=== PATIENT | female | born 1965 | race Caucasian/White ===

== ENCOUNTER 2017-04-29 17:30 | Observation (INO) ==
[2017-04-29] MEDS ORDERED: Aspirin 81 MG TAB.CHEW PO ONE (17:31)
[2017-04-29] MEDS ORDERED: diazePAM 10 MG TABLET PO ONE ×2 (17:36→23:18)
--- NOTE | 2017-04-29 17:47 | Emergency Department Note ---
Disposition Clinical Impression: Anxiety, Non-cardiac chest pain Disposition: Admitted As Inpatient Condition: Good Instructions: Chest Pain (ED), Anxiety (ED) Referrals: NONE,PCP [Primary Care Provider] - Forms: ED Satisfaction Letter Time of Disposition: 17:58 Chest Pain HPI - General Chief Complaint: ED Chest Pain Stated Complaint: Chest Pain Time Seen by Provider: 04/29/17 17:30 Source: patient, EMS Mode of arrival: ambulatory Limitations: no limitations Vital Signs Reviewed: Yes Nursing Notes Reviewed: Yes - History of Present Illness HPI Narrative: Patient is a 52-year-old female with past medical history of anxiety, depression , PTSD. She currently takes Wellbutrin 200 mg twice daily, diazepam 10 mg 3 times a day, fluoxetine 60 mg once daily, Lyrica 75 mg twice a day, melatonin at bedtime. She says that she does have a history of anxiety and panic attacks in the past where she usually just has not had severe. Today, she started having chest pain this morning around 6 AM. It was a sharp pain in the center of her chest, radiated to her back, was associated with palpitations, sweating, feeling of nervousness. This lasted about 30 minutes. It intermittently occurred throughout the day. Prior to arrival, patient had return of symptoms and she stated that it was significantly worse than this morning. She denies any history of CAD, stents, [place]. Denies any high blood pressure, diabetes, high cholesterol. She was very nervous on exam. Hyperventilating. Denies any other nausea, vomiting, abdominal pain, fevers, cough. Severity scale (1-10): 10 - Related Data Home Medications Medication Instructions Recorded Confirmed Diazepam 06/14/16 Benadryl 09/25/16 BuPROPion 09/25/16 Topamax 09/25/16 Tylenol 09/25/16 Previous Rx's Medication Instructions Recorded Butalb/Acetaminophen/Caffeine 1 each PO Q6H PRN #6 capsule 09/25/16 [Fioricet 50-300-40 mg Capsule] methylPREDNISolone [Medrol] 4 mg PO TAPER #21 tablet 09/25/16 Allergies Allergy/AdvReac Type Severity Reaction Status Date / Time Erythromycin Base Allergy Anaphylaxis Verified 04/29/17 17:31 gabapentin [From Neurontin] Allergy Anaphylaxis Verified 04/29/17 17:31 Macrolide Antibiotics Allergy Anaphylaxis Verified 09/30/17 17:31 Penicillins Allergy Anaphylaxis Verified 04/29/17 17:31 Sulfa (Sulfonamide Allergy Anaphylaxis Verified 04/29/17 17:31 Antibiotics) Tetracycline Allergy Anaphylaxis Verified 04/29/17 17:31 All systems ED: reviewed and negative except as stated. Constitutional: Denies: fever Cardiovascular: Reports: chest pain, palpitations Respiratory: Reports: dyspnea Neurological: Denies: weakness, numbness Psychiatric: Reports: anxiety Chest Pain PMH - Past Medical History Medical history: Reports: asthma Surgical history: Reports: appendectomy, hysterectomy, other Psychiatric history: Reports: anxiety, depression - Social History Smoking Status: Former smoker Alcohol use: Reports: none Drug use: Reports: none Physical Exam - General Limitations: no limitations General appearance: alert, anxious - Head Head exam: atraumatic, normocephalic, normal inspection - Eye Eye exam: Present: normal appearance, PERRL, EOMI - ENT ENT exam: normal exam, normal oropharynx, mucous membranes moist - Neck Neck exam: Present: normal inspection, full ROM, trachea midline - Chest Chest inspection: Present: normal inspection, symmetric chest wall rise. Absent : tenderness - Respiratory Respiratory exam: Present: normal lung sounds bilaterally - Cardiovascular Cardiovascular exam: Present: regular rate, normal rhythm, normal heart sounds - Abdominal Exam Abdominal exam: Present: soft, Non-Tender. Absent: tenderness, distention, guarding, rebound, rigidity - Extremities Exam Extremities exam: Present: normal inspection, full ROM. Absent: tenderness, pedal edema - Neurological Exam Neurological exam: Present: alert, oriented X3. Absent: motor sensory deficit - Psychiatric Psychiatric exam: Present: anxious (very anxious on exam, won't maintain eye contact with me, hyperventilating ). Absent: homicidal ideation, suicidal ideation - Skin Skin exam: Present: warm, dry, intact, normal color Course Course Narrative: Patient was tachycardic. The rest of the vitals within normal limits. Patient very anxious on exam, hyperventilating. EKG shows sinus tachycardia with no acute ST changes. She has as previous EKGs that shows sinus tachycardia as well. Physical exam was fairly benign aside from the previously mentioned anxiety. No reproducible chest pain, lungs clear, abdomen soft and benign. Patient says that she is due for diazepam dosing currently. We will give her 10 mg of diazepam. Will also give aspirin 325mg. Her heart score, assuming the troponin will be negative, is currently 1 only due to age. She has no other risk factors for cardiac disease. We will obtain troponin, basic blood work, chest x-ray. 18:28 Leukocytosis present. Trop 0.04, no previous elevations above cutoff. CXR negative. WHile heart score is low, with patient having active chest pain, mild elevation in trop, will admit for chest pain rule out. Vital Signs Pulse Rate 140 04/29/17 17:31 Respiratory Rate 30 04/29/17 17:31 Blood Pressure 148/97 04/29/17 17:31 O2 Sat by Pulse Oximetry 98 04/29/17 17:31 Temperature 99.0 F 04/29/17 17:32 Pulse Rate 153 04/29/17 18:35 Respiratory Rate 28 04/29/17 18:35 Blood Pressure 106/69 04/29/17 18:35 O2 Sat by Pulse Oximetry 95 04/29/17 18:35 Oxygen Delivery Oxygen Delivery Nasal Cannula Chest Pain - MDM Narrative Medical decision making narrative: Patient was tachycardic. The rest of the vitals within normal limits. Patient very anxious on exam, hyperventilating. EKG shows sinus tachycardia with no acute ST changes. She has as previous EKGs that shows sinus tachycardia as well. Physical exam was fairly benign aside from the previously mentioned anxiety. No reproducible chest pain, lungs clear, abdomen soft and benign. Patient says that she is due for diazepam dosing currently. We will give her 10 mg of diazepam. Will also give aspirin 325mg. Her heart score, assuming the troponin will be negative, is currently 1 only due to age. She has no other risk factors for cardiac disease. We will obtain troponin, basic blood work, chest x-ray. Leukocytosis present. Trop 0.04, no previous elevations above cutoff. CXR negative. WHile heart score is low, with patient having active chest pain, mild elevation in trop, will admit for chest pain rule out. - Medical Records Medical records reviewed: Yes I reviewed the patient's medical records. - Lab Data Lab results reviewed: Yes I reviewed the patient's lab results. Result diagrams: 04/29/17 17:59 04/29/17 17:59 Lab Results 04/29/17 04/29/17 04/29/17 Range/Units 17:59 17:59 17:59 WBC 17.0 H (4.3-11.1) K/mcL RBC 5.50 H (3.82-4.97) M/mcL Hgb 15.5 H (11.5-15.4) g/dL Hct 45.5 H (35.3-44.9) % MCV 82.7 L (83.0-100.0) fL MCH 28.2 (28.0-33.3) pg MCHC 34.1 (31.6-35.5) g/dL RDW 14.0 (11.5-14.5) % Plt Count 359 (140-400) K/mcL MPV 9.5 (9.4-12.4) fL Immature Gran % 0.5 (0-4) % Seg Neutrophils % 65.7 % Lymphocytes % 27.5 % Monocytes % 4.3 % Eosinophils % 1.6 % Basophils % 0.4 % Neutrophils # 11.2 H (1.6-8.9) K/mcL Lymphocytes # 4.7 H (0.6-4.6) K/mcL Monocytes # 0.7 (0.0-1.3) K/mcL Eosinophils # 0.3 (0.0-0.6) K/mcL Basophils # 0.1 (0.0-0.2) K/mcL PT 10.6 (9.4-12.1) Seconds INR 1.0 Sodium 138 (136-145) mEq/L Potassium 3.8 (3.5-4.5) mEq/L Chloride 104 (98-109) mEq/L Carbon Dioxide 21 (19-29) mEq/L BUN 13 (7-20) mg/dL Creatinine 0.75 (0.57-1.11) mg/dL Est GFR ( Amer) > 60 (> 60) Est GFR (Non-Af Amer) > 60 (> 60) BUN/Creatinine Ratio 17 (6-26) Glucose 121 H (70-99) mg/dL Calculated Osmolality 287 (280-300) Calcium 10.5 (8.6-10.8) mg/dL Troponin I (0-0.03) ng/mL TSH 1.981 (0.350-4.840) mcIU/mL 04/29/17 Range/Units 17:59 WBC (4.3-11.1) K/mcL RBC (3.82-4.97) M/mcL Hgb (11.5-15.4) g/dL Hct (35.3-44.9) % MCV (83.0-100.0) fL MCH (28.0-33.3) pg MCHC (31.6-35.5) g/dL RDW (11.5-14.5) % Plt Count (140-400) K/mcL MPV (9.4-12.4) fL Immature Gran % (0-4) % Seg Neutrophils % % Lymphocytes % % Monocytes % % Eosinophils % % Basophils % % Neutrophils # (1.6-8.9) K/mcL Lymphocytes # (0.6-4.6) K/mcL Monocytes # (0.0-1.3) K/mcL Eosinophils # (0.0-0.6) K/mcL Basophils # (0.0-0.2) K/mcL PT (9.4-12.1) Seconds INR Sodium (136-145) mEq/L Potassium (3.5-4.5) mEq/L Chloride (98-109) mEq/L Carbon Dioxide (19-29) mEq/L BUN (7-20) mg/dL Creatinine (0.57-1.11) mg/dL Est GFR ( Amer) (> 60) Est GFR (Non-Af Amer) (> 60) BUN/Creatinine Ratio (6-26) Glucose (70-99) mg/dL Calculated Osmolality (280-300) Calcium (8.6-10.8) mg/dL Troponin I 0.04 H* (0-0.03) ng/mL TSH (0.350-4.840) mcIU/mL - Radiology Data Radiology results reviewed: Yes I reviewed the patient's radiology results. - EKG Data EKG attestation: Yes I reviewed and interpreted this EKG. EKG results narrative: 04/29/2017 at 17:33. Sinus tachycardia. Rate 138. UT interval 147. QRS 78. QTC 357. No acute ST elevation or depression. Unchanged from previous EKG. Patient also had sinus tachycardia on 01/30/2017 with a rate of 135. Heart Score - Score History: Slightly Suspicious EKG: Normal Age: 45-65 Risk Factors: No risk factors known Troponin: Less than normal limit HEART Score Total: 1 S.B.A.R. - [place] Situation: Demographics, MOA Background: Presenting Complaint, Relevant PMH, Meds, & Allergies Assessment: Vital Signs, Course and respsone to treatment, Exam Concerns, Patient/Family Expectation, Pertinant Lab Results Recommendation: Barrier(s) to disposition, Recommendation based on pending studies, treatments, or consults [place] Report Given to: Bret Last Repor Time: 18:42
--- NOTE | 2017-04-29 17:54 | Emergency Department Note ---
START Narrative - START START: I examined this patient and my medical decision-making was reviewed with the emergency medicine resident. I agree with the documented findings, disposition and treatment plan as described except to the extent set forth below. Patient seen with emergency medicine resident Dr. JIMBO LOCKHART, Please see a copy of his note for details of the H&P, ED evaluation, management and disposition. I have independently evaluated the patient and confirmed appropriate portions of the history and physical exam. Briefly: A 52-year-old female nonsmoker no cardiac risk factors with the [place] 1 history long-standing anxiety takes 30 mg of Valium daily presents with chest discomfort since 9:00 this morning he reached to your physical examination is benign EKG shows sinus tachycardia at about 140 ischemic changes. Prior EKG dated January 2017 her heart rate was 135 at the time. Patient says she normally takes her 10 mg of Valium now we gave to her orally, chest x-ray troponin screening labs pending. Anticipated disposition is discharge home with outpatient follow-up.
[2017-04-29 18:06] LABS: Basophils # 0.1 K/mcL (0.0-0.2); Basophils % 0.4 %; Eosinophils # 0.3 K/mcL (0.0-0.6); Eosinophils % 1.6 %; Hematocrit 45.5 % (35.3-44.9); Hemoglobin 15.5 g/dL (11.5-15.4); Immature Granulocytes % 0.5 % (0-4); Lymphocytes # 4.7 K/mcL (0.6-4.6); Lymphocytes % 27.5 %; Mean Corpuscular HGB Conc 34.1 g/dL (31.6-35.5); Mean Corpuscular Hemoglobin 28.2 pg (28.0-33.3); Mean Corpuscular Volume 82.7 fL (83.0-100.0); Mean Platelet Volume 9.5 fL (9.4-12.4); Monocytes # 0.7 K/mcL (0.0-1.3); Monocytes % 4.3 %; Neutrophils # 11.2 K/mcL (1.6-8.9); Platelet Count 359 K/mcL (140-400); Segmented Neutrophils % 65.7 %
[2017-04-29 18:10] LABS: Prothrombin Time 10.6 Seconds (9.4-12.1)
[2017-04-29 18:17] LABS: BUN/Creatinine Ratio 17 (6-26); Blood Urea Nitrogen 13 mg/dL (7-20); Calcium 10.5 mg/dL (8.6-10.8); Carbon Dioxide 21 mEq/L (19-29); Chloride 104 mEq/L (98-109); Glucose 121 mg/dL (70-99); Osmolality,Calculated 287 (280-300); Potassium 3.8 mEq/L (3.5-4.5); Sodium 138 mEq/L (136-145); eGFR For African Americans > 60 (> 60); eGFR For Non-African Americans > 60 (> 60)
[2017-04-29] MEDS ORDERED: Nitroglycerin 0.4 MG TAB.SUBL SL PRN (18:29)
[2017-04-29] MEDS ORDERED: Nitroglycerin 0.4 MG TAB.SUBL SL ONE (18:30)
[2017-04-29 18:39] LABS: Thyroid Stimulating Hormone 1.981 mcIU/mL (0.350-4.840)
[2017-04-29] MEDS ORDERED: *HR* FentaNYL (PF) 100 MCG/2 ML VIAL IVP ONE (19:26)
[2017-04-29] MEDS ORDERED: Naloxone 0.4 MG/ML INJ IVP PRN (19:40)
[2017-04-29] MEDS ORDERED: Ondansetron 4 MG/2 ML VIAL IVP PRN (19:43)
[2017-04-29 19:50] LABS: Magnesium 1.7 mg/dL (1.6-2.6)
[2017-04-29] MEDS ORDERED: *HR* Heparin 5,000 UNIT/ML VIAL SQ SCH (20:00)
[2017-04-29] MEDS: *HR* Morphine 2 MG/ML SYRINGE IVP PRN (20:59)
[2017-04-29] MEDS ORDERED: *HR* Heparin 5,000 UNIT/ML VIAL IVP ONE (22:24)
[2017-04-29] MEDS ORDERED: *HR* Heparin 5,000 UNIT/ML VIAL IVP PRN ×2 (22:24)
[2017-04-29] MEDS ORDERED: (Rizatriptan Benzoate [Maxalt] 5 MG) PO PRN (22:28)
[2017-04-29] MEDS ORDERED: Heparin 25,000 UNIT/500 ML D5W 25,000 UNIT/500 ML MLS IVC SCH (22:30)
--- NOTE | 2017-04-29 22:32 | Internal Med History&Physical ---
Date of Encounter: 04/30/17 Time of Encounter: 22:15 Assessment and Plan (1) Chest pain Current visit: Yes Status: Acute Atypical chest pain - rule out ACS, possible non-STEMI Continue Aspirin, Crestor, Metoprolol, IV Heparin as per protocol Nitroglycerin as needed for chest pain, IV Morphine as needed Troponin - 0.08, cycle troponin BN peptide < 10 EKG - sinus tachycardia with no acute ST-T changes Chest x-ray - no acute abnormality Cardiology consult for elevated troponin and persistent chest pain Cardiac telemetry, labs in a.m., monitor closely Qualifiers: Chest pain type: unspecified Qualified Code(s): R07.9 - Chest pain, unspecified (2) Anxiety Current visit: Yes Status: Chronic Anxiety with depression and PTSD with history of panic attacks - probably contributing to chest pain Continue home dose of Valium, Cymbalta, Wellbutrin (3) Leukocytosis Current visit: Yes Status: Acute Leukocytosis - unclear etiology, no obvious source of sepsis Empiric IV Levaquin, cultures pending Qualifiers: Leukocytosis type: unspecified Qualified Code(s): D72.829 - Elevated white blood cell count, unspecified (4) Hyperlipemia Current visit: No Status: Chronic Continue Crestor Qualifiers: Hyperlipidemia type: unspecified Qualified Code(s): E78.5 - Hyperlipidemia , unspecified (5) Asthma Current visit: No Status: Chronic Chronic Asthma, stable - not in exacerbation Continue Qvar, Albuterol as needed Qualifiers: Asthma severity: unspecified severity Asthma complication type: uncomplicated Qualified Code(s): J45.909 - Unspecified asthma, uncomplicated (6) Hypothyroidism Current visit: Yes Status: Chronic Continue home dose of Liothyronine Qualifiers: Hypothyroidism type: unspecified Qualified Code(s): E03.9 - Hypothyroidism , unspecified (7) DVT prophylaxis Current visit: Yes Status: Acute Patient is on IV heparin for elevated troponin, continue Internal Medicine - H&P: HPI Chief complaint: Chest pain Admitted From: Emergency Dept Plans for Post Hospital Care: Home History of present illness: Ms. Good is a 52 year old female with past medical history of anxiety, depression, hypothyroidism, asthma and hyperlipidemia. Patient presents to ED with complaints of chest pain. Examined in the room. Patient is awake and alert. Not in distress. Able to provide all history. No family members at bedside. Patient states at around 6 AM this morning she developed sudden onset chest pain. She describes it as sharp and stabbing pain that is almost constant. She decided to come to the ER because of persistent symptoms. Patient states the pain was in the left side of her chest and radiating to her left shoulder and left arm and sometimes to her back. She stated that her heart was pounding and she had palpitations. Right now she rates the pain 6 out of 10. She states it was 10 out of 10 earlier in the day. She also complained of diaphoresis and feeling anxious. Patient does not have any history of coronary artery disease or [place]. Patient denies shortness of breath or headache or cough or fever. No aggravating or alleviating factors. No other associated symptoms. Initial workup in the ED is significant for elevated white count and elevated troponin. EKG shows sinus tachycardia. Chest x-ray does not show any acute abnormality and d-dimer is within normal limits. Patient has been started on IV heparin because of elevated troponin. She will be on IV morphine as needed for pain and has been started on aspirin and Crestor. Cardiology consult pending. Patient has been explained about her condition and plan of care. She understood and agreed. No unanswered questions. CODE STATUS full code. Past Med Surg Social Fam HX - Past Medical History Medical history: asthma Psychiatric history: anxiety, depression - Past Surgical History Surgical History: appendectomy, hysterectomy, other - Social History Smoking Status: Former smoker Smokeless Tobacco Status: No Alcohol use: none Drug use: none - Family History Mother Living Status: Hx Family Cardiac Disorders: Yes (CABG) Hx Family Cancer: Yes (breast, non hodgkins) Internal Medicine - H&P: Meds Albuterol Neb [AccuNeb] 0.63 mg IH Q6HR PRN 04/29/17 [History] Albuterol Sulfate [Albuterol Inhaler] 2 puff PO Q4HR PRN 04/29/17 [History] Liothyronine Sodium [Cytomel] 25 mcg PO DAILY 04/29/17 [History] Melatonin/Pyridoxine HCl (B6) [Melatonin 5 mg Tablet] 5 mg PO HS 04/29/17 [ History] Pregabalin [Lyrica] 150 mg PO DAILY 04/29/17 [History] QVAR 80 mcg 80 mcg PO BID 04/29/17 [History] RX: Duloxetine HCl [Cymbalta] 60 mg PO DAILY 04/29/17 [History] Rizatriptan Benzoate [Maxalt] 5 mg PO PRN PRN 04/29/17 [History] Rosuvastatin [Crestor] 40 mg PO HS 04/29/17 [History] buPROPion HCl [Bupropion HCl Sr] 200 mg PO BID 04/29/17 [History] diazePAM [Valium] 10 mg PO TID 04/29/17 [History] 3 Allergy/AdvReac Type Severity Reaction Status Date / Time Erythromycin Base Allergy Anaphylaxis Verified 04/29/17 17:31 gabapentin [From Neurontin] Allergy Anaphylaxis Verified 04/29/17 17:31 Macrolide Antibiotics Allergy Anaphylaxis Verified 04/29/17 17:31 Penicillins Allergy Anaphylaxis Verified 04/29/17 17:31 Sulfa (Sulfonamide Allergy Anaphylaxis Verified 04/29/17 17:31 Antibiotics) Tetracycline Allergy Anaphylaxis Verified 04/29/17 17:31 All Systems PM: A 10-system review of systems was performed and is negative for pertinent findings except as documented above in the HPI. - Constitutional Constitutional: fatigue, no fever(s), no weakness - EENT Eyes: no blurry vision - Cardiovascular Cardiovascular ROS IM: chest pain, diaphoresis, palpitations, no dyspnea, no dyspnea on exertion, no edema, no lightheadedness, no orthopnea, no syncope - Respiratory Respiratory: no cough, no dyspnea, no hemoptysis, no dyspnea on exertion, no wheezing, no chest congestion - Gastrointestinal Gastrointestinal: no abdominal pain, no cramping, no diarrhea, no hematemesis, no hematochezia, no melena, no nausea, no vomiting - Genitourinary Genitourinary: no dysuria - Musculoskeletal Musculoskeletal ROS IM: no back pain - Neurological Neurological ROS: no abnormal gait, no confusion, no dizziness, no focal weakness, no loss of vision, no numbness, no tingling - Constitutional Vitals: Temp Pulse Resp BP Pulse Ox 98.0 F 115 20 111/74 97 04/29/17 20:49 04/29/17 20:49 04/29/17 20:49 04/29/17 20:49 04/29/17 20:49 General appearance: Present: cooperative, A&O X 3, pleasant, no acute distress, obese, answers questions appropriately - Head Head exam: Present: atraumatic - Eye Eye exam: Present: EOMI - ENT ENT exam: Present: mucous membranes moist - Respiratory Respiratory exam: Present: chest wall tenderness, CTAB. Absent: accessory muscle use, rales, rhonchi, wheezes, tachypnea - Cardiovascular Cardiovascular exam: Present: +S1, +S2, tachycardia (Regular rhythm) - GI/Abdominal GI/Abdominal exam: Present: soft. Absent: distended, firm, guarding, no peritoneal signs - Extremities Exam Extremities exam: Present: radial pulses palpable and symmetrical. Absent: calf tenderness, cyanotic, pedal edema - Neurological Exam Neurological exam: Present: alert, oriented X3, no focal deficits. Absent: facial droop, speech deficit - Psychiatric Psychiatric exam: Present: anxious Internal Med - H&P Results - Labs CBC & Chem 7: 04/29/17 22:38 04/29/17 17:59 Labs: Cardiac Enzymes 04/29/17 Range/Units 20:09 Troponin I 0.08 H* (0-0.03) ng/mL
[2017-04-29 22:44] LABS: Hematocrit 43.1 % (35.3-44.9); Hemoglobin 14.6 g/dL (11.5-15.4); Mean Corpuscular HGB Conc 33.9 g/dL (31.6-35.5); Mean Corpuscular Hemoglobin 28.5 pg (28.0-33.3); Mean Platelet Volume 9.6 fL (9.4-12.4); Platelet Count 321 K/mcL (140-400); Red Blood Count 5.13 M/mcL (3.82-4.97); Red Cell Distribution Width 14.1 % (11.5-14.5)
[2017-04-29 22:51] LABS: Activated Partial Thrombo Time 31.2 Seconds (26.0-36.0)
[2017-04-29] MEDS: Acetaminophen 325 MG TABLET PO PRN (23:06)
[2017-04-29] MEDS: Melatonin 3 MG TABLET PO PRN (23:35)
[2017-04-30] MEDS ORDERED: Albuterol Neb 0.63 MG/3 ML VIAL IH PRN (01:28)
[2017-04-30 02:36] LABS: Hematocrit 43.1 % (35.3-44.9); Hemoglobin 14.2 g/dL (11.5-15.4); Mean Corpuscular HGB Conc 32.9 g/dL (31.6-35.5); Mean Corpuscular Hemoglobin 28.1 pg (28.0-33.3); Mean Corpuscular Volume 85.3 fL (83.0-100.0); Mean Platelet Volume 9.6 fL (9.4-12.4); Platelet Count 348 K/mcL (140-400); Red Blood Count 5.05 M/mcL (3.82-4.97); Red Cell Distribution Width 14.2 % (11.5-14.5)
[2017-04-30] MEDS: *HR* Morphine 2 MG/ML SYRINGE IVP PRN ×2 (02:39→07:27)
[2017-04-30 02:43] LABS: BUN/Creatinine Ratio 20 (6-26); Blood Urea Nitrogen 15 mg/dL (7-20); Calcium 10.2 mg/dL (8.6-10.8); Carbon Dioxide 25 mEq/L (19-29); Chloride 101 mEq/L (98-109); Cholesterol 231 mg/dL (< 200); Glucose 99 mg/dL (70-99); HDL Cholesterol 33 mg/dL (40-59); LDL Cholesterol,Calculated 148 mg/dL (0-99); Osmolality,Calculated 287 (280-300); Potassium 3.9 mEq/L (3.5-4.5); Sodium 138 mEq/L (136-145); Triglycerides 249 mg/dL (< 150); eGFR For African Americans > 60 (> 60); eGFR For Non-African Americans > 60 (> 60)
[2017-04-30 03:15] LABS: Basophils # 0.4 K/mcL (0.0-0.2); Lymphocytes # 8.8 K/mcL (0.6-4.6); Monocytes # 0.4 K/mcL (0.0-1.3); Neutrophils # 12.4 K/mcL (1.6-8.9)
[2017-04-30 03:16] LABS: Large Platelets Present (Not Present); Platelet Estimate Normal (Normal); Reactive Lymphocytes Present (Not Present)
[2017-04-30] MEDS: Levofloxacin 500 MG/100 ML 500 MG/100 ML BAG IVPB SCH (05:55)
[2017-04-30] MEDS: Famotidine 20 MG/2 ML VIAL IVP SCH ×2 (05:56→17:21)
[2017-04-30 06:16] LABS: Activated Partial Thrombo Time 121.5 Seconds (26.0-36.0)
[2017-04-30 06:23] LABS: Heparin anti-factor XA UFH 0.84 IU/mL (0.30-0.70)
[2017-04-30] MEDS: Aspirin 81 MG TAB.CHEW PO SCH (08:52)
[2017-04-30] MEDS: BuPROPion SR (12 HR) 100 MG TABLET PO SCH ×2 (08:53→21:45)
[2017-04-30] MEDS: Beclomethasone 80mcg MDI IH SCH ×2 (09:22→19:48)
--- NOTE | 2017-04-30 09:47 | Cardiology Consult Note ---
<Su Burgess - Last Filed: 04/30/17 09:44> Date of Encounter: 04/30/17 Time of Encounter: 09:00 Assessment and Plan (1) Chest pain Current Visit: Yes Status: Acute Per cardiology: -Presented with chest pain that started while standing in shower. States chest pain worsens with exertion. Denies alleviating factors. -Mildly elevated troponin, now normal. -ECG with no acute ischemic changes. -Echo 11/2015 LVEF 60%, no significant valvular dysfunction, all begum with normal motion. -Denies current chest pain. -Echo pending. -Will check non-excercise nuclear stress test (patient reports she cannot walk on treadmill due to neuropathy in her feet) -Further recommendations pending stress. Qualifiers: Chest pain type: unspecified Qualified Code(s): R07.9 - Chest pain, unspecified (2) Elevated troponin Current Visit: Yes Status: Acute Per cardiology: -Troponins 0.04, 0.08, 0.02, 0.01. -Troponins flat and adynamic in the setting of HTN and tachycardia. BP on admission 148/97 (normal BP 90-100). -ECG with no ischemic changes. -Echo pending. -Previous echo as above. -Denies current chest pain. -Was on heparin drip per primary service. -ON asa, statin, beta blcoker. -Stress test. -Heparin drip stopped. -Do not suspect NSTEMI, suspect demand ischemia related to above. NO cardiac rehab warranted at this time. -Further recommendations pending stress. (3) Sinus tachycardia Current Visit: Yes Status: Acute Per cardiology: -ECG with sinus tachcardia, HR 138 on admission. -ON beta elisha. -Average HR 90. -COntinue beta elisha. -Will continue to monitor. (4) Hyperlipemia Current Visit: No Status: Chronic Per cardiology: -KNown hyperlipidemia. -ON statin. -Triglycerides 249, cholesterol 231, LDL 148, HDL 33. -Dietary and lifestyle changes reviewed with patient. Qualifiers: Hyperlipidemia type: mixed hyperlipidemia Qualified Code(s): E78.2 - Mixed hyperlipidemia Discussion w patient/family: The assessment and plan as outlined above was discussed with the patient who expressed understanding and agreement. All questions were answered. Thank you for involving us in the care of your patient. Please call with any questions. Discussed and reviewed with . History of Present Illness Consult date: 04/30/17 Requesting physician: Neo Rae Consult reason: elevated troponin, chest pain Chief complaint: chest pain History of present illness: Ms. Good is a 52 year old female with a relevant past medical history of anxiety, hyperlipidemia, and family history of CAD of mother at age 54 with CABG. Patient presented to [facility] with complaints of palpitations, chest pain with radiation to back. Patient states chest pain started while standing in the shower. Patient reports associated shortness of breath and increased fatigue. Patient also states had some dizziness. Patient states chest pain was worse with exertion. Denies alleviating factors. Patient denies current chest pain. Past Med Surg Social Fam HX - Past Medical History Attestation: Yes The following information was validated with the patient. Source: patient, old records reviewed Medical history: asthma, hyperlipidemia Psychiatric history: anxiety, depression - Past Surgical History Surgical History: appendectomy, hysterectomy, other - Social History Smoking Status: Former smoker Smokeless Tobacco Status: No Alcohol use: none Drug use: none - Family History Mother Living Status: Hx Family Cardiac Disorders: Yes (CABG) Hx Family Cancer: Yes (breast, non hodgkins) Medications and Allergies Albuterol Neb [AccuNeb] 0.63 mg IH Q6HR PRN 04/29/17 [History] Albuterol Sulfate [Albuterol Inhaler] 2 puff PO Q4HR PRN 04/29/17 [History] Duloxetine HCl [Cymbalta] 60 mg PO DAILY 04/29/17 [History] Liothyronine Sodium [Cytomel] 25 mcg PO DAILY 04/29/17 [History] Melatonin/Pyridoxine HCl (B6) [Melatonin 5 mg Tablet] 5 mg PO HS 04/29/17 [ History] Pregabalin [Lyrica] 150 mg PO DAILY 04/29/17 [History] QVAR 80 mcg 80 mcg PO BID 04/29/17 [History] Rizatriptan Benzoate [Maxalt] 5 mg PO PRN PRN 04/29/17 [History] Rosuvastatin [Crestor] 40 mg PO HS 04/29/17 [History] buPROPion HCl [Bupropion HCl Sr] 200 mg PO BID 04/29/17 [History] diazePAM [Valium] 10 mg PO TID 04/29/17 [History] 3 Allergy/AdvReac Type Severity Reaction Status Date / Time Erythromycin Base Allergy Anaphylaxis Verified 04/29/17 17:31 gabapentin [From Neurontin] Allergy Anaphylaxis Verified 04/29/17 17:31 Macrolide Antibiotics Allergy Anaphylaxis Verified 04/29/17 17:31 Penicillins Allergy Anaphylaxis Verified 04/29/17 17:31 Sulfa (Sulfonamide Allergy Anaphylaxis Verified 04/29/17 17:31 Antibiotics) Tetracycline Allergy Anaphylaxis Verified 04/29/17 17:31 All Systems Review: A 10-system review of systems was performed and is negative for pertinent findings except as documented above in the HPI. - Constitutional Constitutional: fatigue - Cardiovascular Cardiovascular: as per HPI, chest pain with exertion, dyspnea on exertion, palpitations Physical Examination Vital Signs, Last 4 Hours Temp Pulse Resp BP Pulse Ox 04/30/17 07:29 97.8 F 90 16 116/71 96 04/30/17 07:26 102/76 General: Conversant, No Apparent Distress HEENT: Atraumatic, Normocephaly, Mucus Membranes Moist Neck: No JVD, Normal carotid pulses Cardiac: Reg Rate and Rhythm, Normal S1 and S2, No Murmur Lungs: Normal Breath Sounds, No Wheeze, Rales, Rhonchi Neuro: Alert and responsive, No focal deficits noted Abdomen: Soft, Non-Tender Skin: No rashes noted on visualized skin Musculoskeletal: Other (States some chest tenderness to palpation. ) Extremities: No Clubbing, No Cyanosis, No Edema, Normal Pulses Results 04/30/17 02:21 04/30/17 02:21 Lab Results Impressions Chest X-Ray 04/29/17 18:14 IMPRESSION: No acute abnormality detected. D/ / Bhupendra Marie MD / Bhupendra Marie MD Interpreting Provider: Bhupendra Marie MD Active Medications Acetaminophen (Tylenol) 650 mg PO Q6HR PRN PRN Reason: Mild Pain (1-3) Stop: 10/29/17 19:44 Last Admin: 04/29/17 23:06 Dose: 650 mg Albuterol Sulfate (Accuneb) 0.63 mg IH Q6HR PRN PRN Reason: Shortness Of Breath Stop: 10/30/17 01:29 Aspirin (Aspirin) 81 mg PO DAILY [facility] Stop: 10/30/17 09:01 Last Admin: 04/30/17 08:52 Dose: 81 mg Beclomethasone Dipropionate (Qvar 80 Mcg) 1 puff IH BIDR [facility] Stop: 10/30/17 10:01 Last Admin: 04/30/17 09:22 Dose: Not Given Bupropion HCl (Wellbutrin Sr) 200 mg PO BID [facility] Stop: 10/30/17 09:01 Last Admin: 04/30/17 08:53 Dose: 200 mg Duloxetine HCl (Cymbalta) 60 mg PO DAILY [facility] Stop: 10/30/17 09:01 Last Admin: 04/30/17 08:52 Dose: 60 mg Famotidine (Pepcid) 20 mg IVP Q12HR [facility] Stop: 10/30/17 06:01 Last Admin: 04/30/17 05:56 Dose: 20 mg Levofloxacin/Dextrose (Levaquin Premix 500mg/100ml) 500 mg in 100 mls @ 100 mls /hr IVPB Q24H JONATHAN PRN Reason: Protocol Stop: 10/30/17 02:01 Last Admin: 04/30/17 05:55 Dose: 100 mls/hr Liothyronine Sodium (Cytomel) 25 mcg PO DAILY [facility] Stop: 10/30/17 09:01 Last Admin: 04/30/17 08:53 Dose: 25 mcg Melatonin (Melatonin) 3 mg PO HS PRN PRN Reason: Insomnia Stop: 10/29/17 23:18 Last Admin: 04/29/17 23:35 Dose: 3 mg Metoprolol Tartrate (Lopressor) 25 mg PO BID [facility] Stop: 10/29/17 22:31 Last Admin: 04/30/17 08:53 Dose: 25 mg Morphine Sulfate (Morphine Sulfate) 2 mg IVP Q4HR PRN PRN Reason: Severe Pain (7-10) Stop: 10/29/17 19:44 Last Admin: 04/30/17 07:27 Dose: 2 mg Naloxone HCl (Narcan) 0.4 mg IVP Q2MIN PRN PRN Reason: Opioid Reversal Stop: 10/29/17 19:41 Nitroglycerin (Nitroglycerin) 0.4 mg SL Q5MIN PRN PRN Reason: Chest Pain Stop: 10/29/17 18:30 Last Admin: 04/29/17 18:31 Dose: 0.4 mg Ondansetron HCl (Zofran) 4 mg IVP Q8HR PRN PRN Reason: Nausea And Vomiting Stop: 10/29/17 19:44 Pharmacy Profile Note (Patient Taking Own Medication) 0 each PO HS JONATHAN Stop: 10/30/17 21:01 Pharmacy Profile Note (Patient Taking Own Medication) 0 each PO AD PRN PRN Reason: MIGRAINE HEADACHE Stop: 10/29/17 22:29 Rosuvastatin Calcium (Crestor) 40 mg PO HS JONATHAN Stop: 10/30/17 21:01 Laboratory Tests 04/29/17 04/29/17 04/29/17 17:59 17:59 20:09 WBC Creatinine Troponin I 0.04 H* 0.08 H* Triglycerides Cholesterol LDL Cholesterol, Calc HDL Cholesterol TSH 1.981 04/30/17 04/30/17 04/30/17 02:21 02:21 02:21 WBC 22.1 H Creatinine 0.76 Troponin I 0.02 Triglycerides 249 H Cholesterol 231 H LDL Cholesterol, Calc 148 H HDL Cholesterol 33 L TSH 04/30/17 08:14 WBC Creatinine Troponin I 0.01 Triglycerides Cholesterol LDL Cholesterol, Calc HDL Cholesterol TSH - Imaging and Cardiology Chest Xray: report reviewed Stress Test: pending Echo: pending, report reviewed - EKG Interpretation EKG results cardiology: personally reviewed (ECG with sinus tachycardia, HR 138. ), other (Telemetry reviewed with average HR previous 12 hours noted to be 90, sinus rhythm. PVCs and PACs noted.) Consult Discharge Plan - Plan Referrals: NONE,PCP [Primary Care Provider] - <Ha Weaver - Last Filed: 04/30/17 13:26> Date of Encounter: 04/30/17 Assessment and Plan Discussion w patient/family: The assessment and plan as outlined above was discussed with the patient and/or family members who expressed understanding and agreement. All questions were answered. Thank you for involving us in the care of your patient. Please call with any questions. History of Present Illness History of present illness: Ms. Good is a 52 year old female All Systems Review: A 10-system review of systems was performed and is negative for pertinent findings except as documented above in the HPI. Results 04/30/17 02:21 04/30/17 02:21 Lab Results 04/29/17 04/29/17 04/29/17 20:09 22:38 22:38 WBC 21.5 H Hgb 14.6 Hct 43.1 Plt Count 321 INR 1.0 APTT 31.2 Sodium Potassium Chloride Carbon Dioxide BUN Creatinine Glucose Calcium Troponin I 0.08 H* 04/30/17 04/30/17 04/30/17 02:21 02:21 02:21 WBC 22.1 H Hgb 14.2 Hct 43.1 Plt Count 348 INR APTT Sodium 138 Potassium 3.9 Chloride 101 Carbon Dioxide 25 BUN 15 Creatinine 0.76 Glucose 99 Calcium 10.2 Troponin I 0.02 04/30/17 04/30/17 05:23 08:14 WBC Hgb Hct Plt Count INR APTT 121.5 H* D Sodium Potassium Chloride Carbon Dioxide BUN Creatinine Glucose Calcium Troponin I 0.01 - Attending Attestation Pt seen and examined independenty, chart reviewed, essentially agree with findings as documented, my evaluation as follows: IMP/Plan 1. Chest pain- called to stress lab with pt having 8/10 chest pain while at rest before started stress imaging. Reports chest pain improved with 3 sl ntg to 3/10, accompanied by nause, diaphoresis and Shortness of breath. Stress canceled, pt to undergo emergent LHC, further recommendations. Risks and benefits discussed, pt agrees to proceed, high density press laborer called in. 2. Elevated troponin of unclear significance, await results of LHC in next thiry minutes. 3. Persistant sinus tach, now rate controlled 4. hyperlipidemia - on Rosuvastatin, will check fasting lipid profile in AM
[2017-04-30] MEDS: Regadenoson 0.4 MG/5 ML SYRINGE IVP ONE ×2 (10:33→11:15)
--- NOTE | 2017-04-30 11:50 | Event Note ---
Date of Encounter: 04/30/17 Time of Encounter: 11:00 - Cardiology Event Note Patient in stress lab for non-excercise nucelar stress test. Patient had borderline ECG changes in leads II, III, and aVF. Patient complained of chest pain 6/10. Patient was given 3 nitroglycerin 5 minutes apart. Nitroglycerin lessened pain, however did not relieve pain. PLan for LHC today. at bedside. Risks versus benefits of LHC explained to patient. Patient states understanding and agreeable for LHC. Bed management notified of need for earth science laboratory technician team to come in for LHC. Further recommendations pending LHC.
--- NOTE | 2017-04-30 11:52 | Internal Med Progress Note ---
Date of Encounter: 04/30/17 Time of Encounter: 08:25 - Assessment and plan (1) STEMI (ST elevation myocardial infarction) Current Visit: Yes Status: Acute Assessment and plan: Patient reported chest pain, heaviness with radiation up to her upper back she describes as throbbing she denies shortness of breath, nausea, vomiting, diaphoresis. She has been admitted for exacerbation of asthma. Chest pain was reproducible with palpation and deep inspiration. She had mild elevation of troponin initially, returned to normal for her third level. She was placed on a heparin drip. Stress test was ordered and patient was taken to the [facility] when her EKG had ST changes. Continue telemetry Cardiology on board Qualifiers: Involved coronary artery: unspecified coronary artery Qualified Code(s): I21.3 - ST elevation (STEMI) myocardial infarction of unspecified site (2) Leukocytosis Current Visit: Yes Status: Acute Assessment and plan: Patient with white count 22.1. She was admitted for exacerbation of asthma and placed on Levaquin, Solu-Medrol. Patient denies fever and there is no tachycardia. Continue to monitor and continue antibiotics. Monitor vital signs with temperature. Qualifiers: Leukocytosis type: unspecified Qualified Code(s): D72.829 - Elevated white blood cell count, unspecified (3) Hypothyroidism Current Visit: Yes Status: Chronic Assessment and plan: TSH is within normal limits. Continue home medications. Qualifiers: Hypothyroidism type: unspecified Qualified Code(s): E03.9 - Hypothyroidism , unspecified (4) Hyperlipemia Current Visit: Yes Status: Chronic Assessment and plan: Lipid panel is elevated, patient is currently on 40 mg of Crestor. Continue to encourage diet modifications and exercise. Medication change may be warranted at this time. Qualifiers: Hyperlipidemia type: mixed hyperlipidemia Qualified Code(s): E78.2 - Mixed hyperlipidemia (5) Asthma Current Visit: Yes Status: Chronic Assessment and plan: Pt was admitted for acute exacerbation of asthma. Lungs are clear, but pt reports intermittent, new cough with thick sputum. She denies increased use of her inhalers, but states that she "should have been using them more." Continue IV antibiotic 02, titrate as needed to maintain 02 sats > 92% nebulizer treatments scheduled Solu-Medrol IV Qualifiers: Asthma severity: unspecified severity Asthma persistence: unspecified Asthma complication type: with acute exacerbation Qualified Code(s): J45.901 - Unspecified asthma with (acute) exacerbation (6) Migraine Current Visit: Yes Status: Chronic Assessment and plan: Pt reports history of migraines. REports coronal headache currently, unlike her migraines. States that she takes Maxalt. Denies need for pain control at this time. Qualifiers: Migraine type: unspecified Status migrainosus presence: without status migrainosus Intractability: not intractable Qualified Code(s): G43.909 - Migraine, unspecified, not intractable, without status migrainosus (7) DVT prophylaxis Current Visit: Yes Status: Acute Assessment and plan: Pt on Heparin gtt - Time Spent With Patient less than 15 minutes - Subjective Interval history: She was seen and assessed at 8:25 AM. She is resting quietly in her bed and reports that she has a cough sometimes is thick. She reports chest pain that is heavy with radiation straight through to her upper back, described as a throbbing. No nausea, vomiting, diaphoresis, or shortness of breath. She also reports having a headache since yesterday that is coronal. She has a history of migraines. Chest pain is reproducible with palpation and deep inspiration. She was seen by cardiology and a stress test was done. She had EKG changes during the stress test and was taken to the [facility]. - Constitutional Vitals: Temp Pulse Resp BP Pulse Ox 97.8 F 90 16 116/71 96 04/30/17 07:29 04/30/17 07:29 04/30/17 07:29 04/30/17 07:29 04/30/17 07:29 General appearance: Present: cooperative, A&O X 3, pleasant, no acute distress, obese, answers questions appropriately - Head Head exam: Present: atraumatic, normal inspection, normocephalic - Eye Eye exam: Present: normal appearance, conjuntiva pink, sclera anicteric - Neck Neck exam general surgery: Present: supple, trachea midline. Absent: lymphadenopathy - Respiratory Respiratory exam: Present: chest wall tenderness, CTAB. Absent: accessory muscle use, decreased breath sounds, rales, rhonchi, wheezes - Cardiovascular Cardiovascular exam: Present: RRR, +S1, +S2. Absent: diastolic murmur, gallop, rubs, systolic murmur - GI/Abdominal GI/Abdominal exam: Present: distended, normal bowel sounds, soft, no peritoneal signs. Absent: hepatomegaly, tenderness - Extremities Exam Extremities exam: Present: normal capillary refill, warm, radial pulses palpable and symmetrical. Absent: calf tenderness, cyanotic, pedal edema - Neurological Exam Neurological exam: Present: alert, oriented X3, no focal deficits. Absent: facial droop, speech deficit - Skin Skin exam: Present: dry, intact, normal color, rash, warm Internal Medicine: Result - Labs CBC & Chem 7: 04/30/17 02:21 04/30/17 02:21 Labs: Short CBC 04/29/17 04/30/17 Range/Units 22:38 02:21 WBC 21.5 H 22.1 H (4.3-11.1) K/mcL Hgb 14.6 14.2 (11.5-15.4) g/dL Hct 43.1 43.1 (35.3-44.9) % Plt Count 321 348 (140-400) K/mcL Neutrophils # 12.4 H (1.6-8.9) K/mcL BMP 04/30/17 02:21 Sodium 138 Potassium 3.9 Chloride 101 Carbon Dioxide 25 BUN 15 Creatinine 0.76 Glucose 99 Calcium 10.2 Cardiac Enzymes 04/29/17 04/30/17 04/30/17 Range/Units 20:09 02:21 08:14 Troponin I 0.08 H* 0.02 0.01 (0-0.03) ng/mL - ABG Interpretation ABG results: PT/INR, D-dimer PT 11.0 Seconds (9.4-12.1) 04/29/17 22:38 D-Dimer 396 ng/mLFEU (0-500) 04/29/17 17:59 Consult Discharge Plan - Plan Referrals: NONE,PCP [Primary Care Provider] -
[2017-04-30] MEDS ORDERED: *HR* Heparin 10,000 UNIT/10 ML VIAL ONE (11:55)
[2017-04-30] MEDS ORDERED: 0.9 % Sodium Chloride 1,000 ML ONE ×2 (11:55→12:04)
[2017-04-30] MEDS ORDERED: Heparin 1,000 UNITS/500 mL NS 500 ML ONE (11:55)
[2017-04-30] MEDS ORDERED: Nitroglycerin 1,000 MCG/10 ML VIAL IV ONE (11:55)
[2017-04-30] MEDS ORDERED: *HR* FentaNYL (PF) 250 MCG/5 ML VIAL ONE (12:03)
[2017-04-30] MEDS ORDERED: *HR* Midazolam HCl 5 MG/5 ML VIAL IVP ONE (12:03)
[2017-04-30] MEDS ORDERED: Ondansetron 4 MG/2 ML VIAL ONE (12:20)
--- NOTE | 2017-04-30 12:23 | Pre-Sedation Evaluation ---
Pre-sedation evaluation - Pre-sedation checklist Date of procedure: 04/30/17 Procedure: Left heart cath/possible PCI Recent Vitals: Last Vital Signs Temp 97.8 F 04/30/17 07:29 Pulse 90 04/30/17 07:29 Resp 16 04/30/17 07:29 BP 116/71 04/30/17 07:29 Pulse Ox 96 04/30/17 07:29 H&P (including ROS) documented in medical record: Yes Previous reaction to sedatives/anesthetics: No Dietary Status: NPO after Midnight Airway Assessment: Patient can open mouth completely, TMJ function normal Dentition: No loose teeth or bridges Possible difficult airway: No ASA Classification *see protocol: CLASS III-Severe systemic disease Plan of Care: Pt appropriate candidate for procedure/moderate/conscious sedation , Risks/benefits of procedure/sedation discussed w/ patient/family, If not NPO; Risk of intake outweiged by necessity to perform procedure
[2017-04-30] MEDS ORDERED: Ondansetron 4 MG/2 ML VIAL IVP PRN (12:45)
--- NOTE | 2017-04-30 12:56 | Nuclear Medicine Stress Report ---
Single NUC read Name: Kamilah Good Date of Study: 04/30/2017 Date: 1965 Ht: 60.0 in Medical Record#: [id number] Age: 52 Wt: 181.0 lb Gender: Female Order #: [id number] Location: [facility] Room: [facility] Supervising Provider: Su Burgess CNP Ordering Physician: Su Brugess CNP Stress Technologist: Shani Villalobos LATHE TENDER, CCT Commercial Project Manager: Iris Obregon Indications: Chest Pain Impression: Normal Segmental Perfusion in rest. Incomplete study. Patient stress image's cancelled secondary to symptoms and abnormal EKG with plan for C. Stress Test Summary: Baseline Information: Stress Information: Nuclear Summary: SPECT myocardial perfusion imaging using Tc99m Sestamibi given intravenously was performed at rest and following cardiac stress testing. The resting images were obtained following initial dose of 11.8 mCi. Following stress an additional dose of mCi was given at peak exercise or 30 seconds post regadenoson infusion. Findings: Study Quality * Incomplete study. NORMALS * Normal Segmental Perfusion in rest. Updated by Mauricio Pritchett MD, [facility] on 04/30/2017 12:48:48 PM electronically signed on 04/30/2017 12:51:54 PM with status of Final
--- NOTE | 2017-04-30 13:10 | Invasive Diagnostic Lab Proc ---
Name: Kamilah Good Date of Study: 04/30/2017 Date: 1965 Ht: 60.6in Medical Record#: [id number] Age: 52 Wt: 180.78lb Gender: Female BSA: 1.8 Order #: [id number] BMI: 34.58 Physicians Procedure Physician: Ha Weaver DO Referring MD: None Referring MD: Staff Name Position Time In Saloni Camargo RT (R) Monitor 12:10 PM Mendoza Arvizu RN Wire Rope Sling Maker 12:10 PM Kateryna Miner RT (R) Scrub 12:10 PM Indications Indication Unstable Angina Procedures Performed Procedure L HRT ARTERY/VENTRICLE ANGIO Pre-Procedure Checklist Informed consent is complete signed and on chart. H&P is on chart. ID band is on and ID verified with patient. Pt not NPO for procedure and MD aware. The procedure was described for the patient and questions were answered. Blood Pressure: 116/71 ECG is on chart. Rhythm: NSR Plan of Care Patient will tolerate the procedure without complications. Adequate level of comfort will be maintained. Hemodynamics will remain stable Patient will recover from procedure without complications. Respiratory function will be maintained. Cardiac rhythm will remain stable. Patient temperature will be maintained. Patient and/or family have verbalized understanding of the procedure. Patient Education Chief Complaint/Reason for Test: Cardiac Cath Developmental Category: Adult (18-64 years) Developmentally Appropriate for Age: Yes Learning Barriers: None Education Needs: Procedure Education Method: Verbal Information Taught: Cardiac Cath Educational Evaluation: Able to repeat information Intravenous Access Time IV Size Location DC'd Fluid/Drip Rate Units RN 11:55 AM 20g 1 1/4" Patent On Arrival Rt Hand Mendoza Arvizu RN 11:55 AM 20g 1 1/4" Patent On Arrival Lt Antecubital 0.9NaCl 25 ml/hr Mendoza Arvizu RN Allergies Macrolide (Erythromycin-Related) Penicillin SULFA (sulfonamide) Macrolide Antibiotics Erythromycin Base ERYTHROMYCIN gabapentin Tetracycline MACROLIDE ANTIBIOTIC Penicillins Sulfa (Sulfonamide Antibiotics) Vital Signs Time BP (mmHg) HR (bpm) O2 Sat. RR (bpm) LOC 11:56 AM 116 / 71 90 96 % 16 5 = Fully awake and oriented or at pre-proc level 12:31 PM / % 5 = Fully awake and oriented or at pre-proc level 12:32 PM / % 5 = Fully awake and oriented or at pre-proc level 12:24 PM 128 / 72 77 99 % 13 12:29 PM 102 / 64 83 100 % 15 12:34 PM 105 / 57 77 100 % 17 12:39 PM 111 / 61 74 100 % 20 12:44 PM 95 / 53 78 100 % 23 12:49 PM 94 / 55 79 100 % 16 12:54 PM 90 / 54 72 100 % 18 12:56 PM 101 / 52 76 100 % 26 5 = Fully awake and oriented or at pre-proc level 12:47 PM / % 5 = Fully awake and oriented or at pre-proc level Procedural Medications Time Medication Dose Units Method Given By 12:26 PM Oxygen 2 L/min nasal cannula Mendoza Arvizu RN 12:26 PM Zofran 4 mg Intravenous Mendoza Arvizu RN 12:28 PM Versed 2 mg Intravenous Mendoza Arvizu RN 12:31 PM Versed 1 mg Intravenous Mendoza Arvizu RN 12:32 PM Lidocaine 2% 10 ml Subcutaneous Ha Weaver, DO 12:43 PM Versed 1 mg Intravenous Mendoza Arvizu RN Duc Score Preprocedure Postprocedure Activity 2- Moves 4 extremities sustained head lift Activity 2- Moves 4 extremities sustained head lift Circulation 2- SBP +/= 20 points of pre-anesthetic level Circulation 2- SBP +/= 20 points of pre-anesthetic level Consciousness 2- Awake and alert oriented x 3 Consciousness 2- Awake and alert oriented x 3 O2 Saturation 2- Able to maintain O2 satruation of 92% on room air O2 Saturation 2- Able to maintain O2 satruation of 92% on room air Respiratory 2- Able to deep breathe and cough well Respiratory 2- Able to deep breathe and cough well Total Score 10 Total Score 10 Contrast Agent: Isovue Diagnostic Contrast: 50 ml Total Contrast: 50 ml Fluoro Dose: 239 mGy Activated Clotting Time Time Seconds to Clot 12:45 PM 98 Procedure Log Time Note Enter By 11:50 AM CathStat 12:10 PM Mendoza Arvizu RN Position: Wire Rope Sling Maker Time in: 12:10 [facility] 12:10 PM Kateryna Miner RT (R) Position: Scrub Time in: 12:10 [facility] 12:10 PM Saloni Camargo RT (R) Position: Monitor Time in: 12:10 [facility] 12:14 PM Pt arrived to brick and blocker aid labor 1 at 12:14 from Stress lab csmith 12:15 PM Case Start 12:22 PM Physician arrived 12: csmith 12:22 PM Meet and greet completed csmith 12:23 PM Sign in performed according to hospital policy. [facility] 12: PM Procedure start 12:[facility] 12: PM Vitals capture started with the following parameters, Patient=Adult, Interval=5 min, Initial Upvdseje=475 mmHg, Deflation Rate=5 mmHg, Cuff placed on Left Arm 12:24 PM HR=77 bpm, IYMW=556/72 mmhg, SpO2=99.0 %, Resp=13 B/min, Comment=sinus 12:25 PM Hair removed from procedure site in holding area using clippers. Bilateral groin prepped with Chloraprep by Saloni Camargo (R), safety strap applied then patient was draped. Skin intact. [facility] 12: PM Time: 12: Zofran 4 mg Intravenous Given by Mendoza Arvizu RN [facility] 12: PM Time: 12: Oxygen on at 2 L/min per nasal cannula by Mendoza Arvizu RN [facility] 12: PM Patient charges- Angio tray pack, Navilyst 3mm J, Pulse Oximetry and ACIST tubing and transducer [facility] PM IV Supplies used: J loop Angio Cath. [facility]: PM Case Delayed no inpatient [facility] PM Time: 12: Versed 2 mg Intravenous Given by Mendoza Arvizu RN [facility] 12: PM HR=83 bpm, ROHM=107/64 mmhg, LdI2=445.0 %, Resp=15 B/min 12: PM Pressure channel 3 zeroed. 12: PM Time: 12:31 Versed 1 mg Intravenous Given by Mendoza Arvizu RN [facility] 12: PM Time: 12:31 Patient comfortable and pain free: Yes [facility] 12:32 PM Time: 12:31LOC: 5 = Fully awake and oriented or at pre-proc level [facility] 12:32 PM Time out performed according to hospital policy dspell 12:32 PM Clinical Presentation: Unstable angina dspellwhiteriver 12:32 PM Time out performed according to hospital policy [facility] 12[facility]32 PM Time: 12:32 10 ml Lidocaine 2% to right groin Subcutaneous Given by Ha Weaver DO [facility] 12:33 PM Pressure channel 3 zeroed. 12:33 PM Micro-Introducer Kit utilized for sheath placement dspellman 12:34 PM HR=77 bpm, HKHX=864/57 mmhg, EjY8=474.0 %, Resp=17 B/min 12:34 PM Access obtained by percutaneous puncture. 6Fr 10cm Terumo [place] sheath placed in right Femoral artery. [id number] dspellman 12:35 PM 0.035 145cm Navilyst 3mmJ wire [id number] dspellman 12:35 PM 5Fr FL 4 catheter inserted over the wire [facility] dspellman 12:36 PM Recorded Pressure: Ao, HR=75, Condition=Condition 1 (Aorta) Ao 89/52/68 12:36 PM LCA angiography performed in multiple views. dspellman 12:38 PM Catheter removed dspellman 12:38 PM Lesion found in Mid Circumflex. Pre Stenosis: 30 Pre DONG Flow: 3: Complete and Brisk Flow/Perfusion dspellman 12:38 PM Coronary Dominance: right dspellman 12:39 PM HR=74 bpm, GQES=743/61 mmhg, JjO9=975.0 %, Resp=20 B/min, Comment=sinus 12:39 PM 6Fr JR 4 Runway guide catheter was used to cannulate the PCI vessel successfully. reused? No dspellman 12:39 PM Recorded Pressure: LV, HR=79, Condition=Condition 1 (Left Ventricle) LV 95/7/23 12:39 PM Catheter selectively placed in left ventricle dspellman 12:39 PM Recorded Pressure: LV, Ao, HR=87, Condition=Condition 1 (Left Ventricle) LV 109/9/17, (Aorta) Ao 99/60/78 12:40 PM Bolus angiogram of left Ventricle complete: 10 ml/sec for a total of 12 mls dspellman 12:40 PM RCA angiography performed in multiple views. dspellman 12:41 PM Catheter removed dspell 12:41 PM Bolus angiogram of right Femoral complete: 7 ml/sec for a total of 10 mls dspellman 12:41 PM Wire removed dspell 12:42 PM ACT drawn dspell 12:44 PM Time: 12:43 Versed 1 mg Intravenous Given by Mendoza Arvizu RN dspell 12:44 PM HR=78 bpm, NIBP=95/53 mmhg, BtB0=072.0 %, Resp=23 B/min, Comment=sinus 12:45 PM At 12:45 the ACT was 98 seconds. dspellman 12:45 PM Procedure completed at 12:45 dspellman 12:46 PM Sign out completed: Radiation Dose 239.40 mGy Fluoro Time: 1.7 Isovue 370 - 200ml contrast 50 ml given by Ha Weaver DO. Complications: NoneCardiac Rehab Consult needed: NoConfirmed administered medications: Yes dspellman 12:46 PM Post ECG NSR dspellman 12:46 PM Post Blood Pressure 95/53 dspellman 12:47 PM Time: 12:32LOC: 5 = Fully awake and oriented or at pre-proc level dspellman 12:47 PM Time: 12:31 Patient comfortable and pain free: Yes dspellwhiteriver 12:47 PM 12:47 Post Pulses Bilateral DP & PT 1+ dspellwhiteriver 12:48 PM Information taught Cardiac Cath dspellwhiteriver 12:48 PM Education needs Procedure and Responsibilities of Patient in Care dspellwhiteriver 12:48 PM Learning barriers :None dspellwhiteriver 12:48 PM Education Methods Verbal dspellwhiteriver 12:48 PM Education evaluation Able to repeat information dspellwhiteriver 12:48 PM Complications: None dspellwhiteriver 12:49 PM HR=79 bpm, NIBP=94/55 mmhg, QhE1=054.0 %, Resp=16 B/min 12:54 PM Report given to 3B RN Pt taken to 3B Room #34. 12:53 dspellwhiteriver 12:54 PM HR=72 bpm, NIBP=90/54 mmhg, EpN8=042 %, Resp=18 B/min 12:54 PM Delay to floor No dspellman 12:54 PM Fluoro Time: 1.7 dspellman 12:54 PM Isovue 370 - 200ml contrast 50 ml given by Ha Weaver DO. dspellman 12:54 PM Radiation Dose 239.40 mGy dspellwhiteriver 12:55 PM Vitals capture stopped. 12:55 PM Vitals capture started with the following parameters, Patient=Adult, Interval=5 min, Initial Fendhkil=729 mmHg, Deflation Rate=5 mmHg, Cuff placed on Left Arm 12:56 PM HR=76 bpm, XBSV=870/52 mmhg, Resp=26 B/min 01:00 PM Site status No bleeding/hematoma - Rt Groin as reported by Kateryna Miner RT (R) at 13:00 dspfara 01:00 PM Opsite applied dspellman 01:01 PM Patient out of room: 13:01 dspellman 01:02 PM Time: 12:47 Patient comfortable and pain free: Yes dspellman 01:02 PM Time: 12:47LOC: 5 = Fully awake and oriented or at pre-proc level dspellman Complications Complication None None Hemodynamics Pressures Site Systolic/A Wave Diastolic/V Wave Mean AO 89 52 68 LV 95 7 23 LV 109 9 17 AO 99 60 78 Post Procedure Information Blood Pressure: 95/53 mmHg Rhythm: NSR Post procedural instructions were given Closure Device Time Device Success/Fail 04/30/2017 1:02:00 PM Manual Compression Successful Site Checks Time Location Status Staff Sheath In? Note 01:00 PM Rt Groin No bleeding/hematoma Kateryna Miner RT (R) Pulses Time Site Pre-Procedure Post-Procedure Note 12:47:00 PM Bilateral DP & PT 1+ Updated by Mendoza Arvizu RN on 04/30/2017 1:03:16 PM Saloni Camargo RT electronically signed on 04/30/2017 1:04:19 PM with status of Final
[2017-04-30] MEDS: 0.9 % Sodium Chloride 1,000 ML IVC SCH (13:31)
--- NOTE | 2017-04-30 16:28 | Event Note ---
Date of Encounter: 04/30/17 Time of Encounter: 16:27 - Cardiology Event Note Per discussion with , no intervention needed per [facility]. Cardiology will sign off and will follow in outpatient setting. Follow up set.
--- NOTE | 2017-04-30 19:03 | Electrocardiograph Report ---
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
--- NOTE | 2017-04-30 19:08 | Electrocardiograph Report ---
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
[2017-04-30] MEDS: Acetaminophen 325 MG TABLET PO PRN (19:34)
[2017-04-30] MEDS ORDERED: PYRIDOXINE HCL PO SCH (21:00)
[2017-04-30] MEDS ORDERED: MELATONIN PO SCH (21:00)
[2017-04-30] MEDS: Melatonin 3 MG TABLET PO PRN (21:45)
[2017-04-30] MEDS: hydrOXYzine pamoate 25 MG CAPSULE PO SCH (21:45)
[2017-04-30 21:58] LABS: Bilirubin,Urine Negative (Negative); Blood,Urine Negative (Negative); Clarity,Urine Clear (Clear); Color,Urine Yellow (Yellow); Glucose,Urine (UA) Normal (Normal); Ketones,Urine Negative (Negative); Leukocyte Esterase,Urine Negative (Negative); Nitrite,Urine Negative (Negative); PH,Urine 5.5 pH Units (5.0-8.0); Protein,Urine Negative (Neg-Trace); Urobilinogen,Urine Normal (Normal)
[2017-04-30 22:03] LABS: Amphetamine Screen,Urine Negative ng/mL (Cutoff=1000); Barbiturate Screen,Urine Negative ng/mL (Cutoff=200); Benzodiazepines Screen,Urine Positive ng/mL (Cutoff=200); Cannabinoid Screen,Urine Negative ng/mL (Cutoff = 50); Cocaine Screen,Urine Negative ng/mL (Cutoff= 300); Opiate Screen,Urine Positive ng/mL (Cutoff=300); Phencyclidine Screen,Urine Negative ng/mL (Cutoff=25)
[2017-05-01] MEDS: 0.9 % Sodium Chloride 1,000 ML IVC SCH (01:21)
[2017-05-01] MEDS: Levofloxacin 500 MG/100 ML 500 MG/100 ML BAG IVPB SCH (01:30)
[2017-05-01] MEDS: Acetaminophen 325 MG TABLET PO PRN (02:26)
[2017-05-01 04:00] LABS: Basophils % 0.4 %; Eosinophils # 0.3 K/mcL (0.0-0.6); Eosinophils % 2.6 %; Hematocrit 36.2 % (35.3-44.9); Immature Granulocytes % 0.3 % (0-4); Lymphocytes # 4.7 K/mcL (0.6-4.6); Lymphocytes % 42.5 %; Mean Corpuscular HGB Conc 32.3 g/dL (31.6-35.5); Mean Corpuscular Hemoglobin 28.1 pg (28.0-33.3); Mean Platelet Volume 9.9 fL (9.4-12.4); Monocytes # 0.5 K/mcL (0.0-1.3); Monocytes % 4.5 %; Neutrophils # 5.5 K/mcL (1.6-8.9); Nucleated Red Blood Cells 0.3 /100 WBC (0); Platelet Count 262 K/mcL (140-400); Red Blood Count 4.16 M/mcL (3.82-4.97); Segmented Neutrophils % 49.7 %
[2017-05-01 04:01] LABS: Hemoglobin 11.7 g/dL (11.5-15.4)
[2017-05-01 04:15] LABS: BUN/Creatinine Ratio 18 (6-26); Blood Urea Nitrogen 13 mg/dL (7-20); Carbon Dioxide 22 mEq/L (19-29); Chloride 107 mEq/L (98-109); Glucose 141 mg/dL (70-99); Osmolality,Calculated 286 (280-300); Sodium 137 mEq/L (136-145); eGFR For African Americans > 60 (> 60); eGFR For Non-African Americans > 60 (> 60)
[2017-05-01 04:21] LABS: Calcium 8.6 mg/dL (8.6-10.8); Potassium 3.9 mEq/L (3.5-4.5)
[2017-05-01] MEDS: Famotidine 20 MG/2 ML VIAL IVP SCH (05:26)
[2017-05-01] MEDS: Aspirin 81 MG TAB.CHEW PO SCH (08:10)
[2017-05-01] MEDS: BuPROPion SR (12 HR) 100 MG TABLET PO SCH (08:11)
[2017-05-01] MEDS: hydrOXYzine pamoate 25 MG CAPSULE PO SCH (08:11)
[2017-05-01] MEDS: Beclomethasone 80mcg MDI IH SCH (08:27)
--- NOTE | 2017-05-01 10:24 | Discharge Summary ---
Date of Encounter: 05/01/17 Time of Encounter: 09:10 - Discharge Diagnosis (1) STEMI (ST elevation myocardial infarction) Priority: Primary Status: Acute Comments: Pt was taken to the clinical lab scientist after having ST changes during her stress test. She was found to have minimal single vessel disease, no further intervention is required. Cardiology has signed off and pt will follow up in the clinic as scheduled. Chest pain is reproducible with palpation and deep inspiration. Qualifiers: Involved coronary artery: unspecified coronary artery Qualified Code(s): I21.3 - ST elevation (STEMI) myocardial infarction of unspecified site (2) Leukocytosis Priority: Secondary Status: Resolved Comments: WBC 11.0 today. Resolved. Qualifiers: Leukocytosis type: unspecified Qualified Code(s): D72.829 - Elevated white blood cell count, unspecified (3) Hypothyroidism Priority: Secondary Status: Chronic Comments: TSH WNL. Continue home medications. Qualifiers: Hypothyroidism type: unspecified Qualified Code(s): E03.9 - Hypothyroidism , unspecified (4) Hyperlipemia Priority: Secondary Status: Chronic Comments: Pt takes Crestor at home. Continue dose. Pt with elevated lipid panel, will add Fenofibrate 120mg po daily. Discussed lifestyle modifications. Qualifiers: Hyperlipidemia type: mixed hyperlipidemia Qualified Code(s): E78.2 - Mixed hyperlipidemia (5) Asthma Priority: Secondary Status: Chronic Comments: Pt was admitted for acute exacerbation of asthma. Lungs are clear, but pt reports intermittent, new cough with thick sputum. She denies increased use of her inhalers, but states that she "should have been using them more." Continue po antibiotic at home. Continue home nebulizers and inhalers Prednisone taper Qualifiers: Asthma severity: unspecified severity Asthma persistence: unspecified Asthma complication type: with acute exacerbation Qualified Code(s): J45.901 - Unspecified asthma with (acute) exacerbation (6) Migraine Priority: Secondary Status: Chronic Comments: Chronic. Continue home medications. Qualifiers: Migraine type: unspecified Status migrainosus presence: without status migrainosus Intractability: not intractable Qualified Code(s): G43.909 - Migraine, unspecified, not intractable, without status migrainosus (7) DVT prophylaxis Priority: Secondary Status: Acute Comments: Pt was on Heparin gtt here. - Discharge Medications Prescriptions: Fenofibrate 120 mg PO DAILY #30 tablet Levofloxacin [Levaquin] 500 mg PO DAILY #5 tablet Metoprolol [Lopressor] 25 mg PO BID #60 tablet Home Medications: Albuterol Neb [AccuNeb] 0.63 mg IH Q6HR PRN 04/29/17 [History] Albuterol Sulfate [Albuterol Inhaler] 2 puff PO Q4HR PRN 04/29/17 [History] Beclomethasone Diprop 80mcg [QVAR 80 mcg] 1 puff IH BID 04/29/17 [History] Duloxetine HCl [Cymbalta] 60 mg PO DAILY 04/29/17 [History] Liothyronine Sodium [Cytomel] 25 mcg PO DAILY 04/29/17 [History] Melatonin/Pyridoxine HCl (B6) [Melatonin 5 mg Tablet] 5 mg PO HS 04/29/17 [ History] Pregabalin [Lyrica] 150 mg PO DAILY 04/29/17 [History] Rizatriptan Benzoate [Maxalt] 5 mg PO PRN PRN 04/29/17 [History] Rosuvastatin [Crestor] 40 mg PO HS 04/29/17 [History] buPROPion HCl [Bupropion HCl Sr] 200 mg PO BID 04/29/17 [History] diazePAM [Valium] 10 mg PO TID 04/29/17 [History] Fenofibrate 120 mg PO DAILY #30 tablet 05/01/17 [Rx] Levofloxacin [Levaquin] 500 mg PO DAILY #5 tablet 05/01/17 [Rx] Metoprolol [Lopressor] 25 mg PO BID #60 tablet 05/01/17 [Rx] Allergies/Adverse Reactions: 3 Allergy/AdvReac Type Severity Reaction Status Date / Time Erythromycin Base Allergy Anaphylaxis Verified 04/29/17 17:31 gabapentin [From Neurontin] Allergy Anaphylaxis Verified 04/29/17 17:31 Macrolide Antibiotics Allergy Anaphylaxis Verified 04/29/17 17:31 Penicillins Allergy Anaphylaxis Verified 04/29/17 17:31 Sulfa (Sulfonamide Allergy Anaphylaxis Verified 04/29/17 17:31 Antibiotics) Tetracycline Allergy Anaphylaxis Verified 04/29/17 17:31 Procedures/tests Complete & Pending: Procedures Performed prior 72 hours Category Date Time Status CL Cardiac Catheterization [CL] Routine Phy Therapist 04/30/17 11:41 Ordered NM rona perf SPECT single [NM] Routine Exams 04/30/17 09:11 Taken ECG 12 lead ECG [ECG] AM 0600 Y 04/30/17 06:00 Ordered ECG 12 lead ECG [ECG] Routine Y 04/29/17 20:51 Completed EV echocardiogram Routine Y 04/30/17 08:00 Completed Date of admission: 04/29/17 19:28 Primary care physician: PCP NONE Consults: 04/29/17 22:27 Consult to Cardiology [CONS] Routine Comment: Consulting Provider: Cardiology Margie Reason for Consult: Elevated troponin, chest pain Call Completed: No Discharging clinician: Nancy Daniels Anticipated date of discharge: 05/01/17 - Patient Status Disposition: Home, Self-Care Condition: Good Functional capacity at discharge: independent ambulation Overall status at discharge: patient is back to baseline - Discharge Instructions Follow Up With: NONE,PCP [Primary Care Provider] - Additional Instructions: Follow up with your PCP in the next 7-10 days Follow up with cardiology as scheduled. Take your medications as directed. Resume your home medications. Watch your diet and try to add exercise and take your new cholesterol medication. We have added Aspirin, and a beta elisha to your medication regimen. Take daily as directed. Return to the ER as needed for any other problems or concerns, or if your problems return or worsen. Return to your normal activites as tolerated. - Diet and Activity Activity: increase activity as tolerated Diet: diabetic diet, low fat, low cholesterol Hospital course: Ms. Good is a 52 year old female with past medical history of anxiety, depression, hypothyroidism, asthma, and hyperlipidemia. She reported to the emergency department on date of admission with complaints of chest pain. She reports that around 6 AM the morning of the admission, she developed sudden onset chest pain and describes it as sharp, stabbing, constant. Pain was in left chest and radiated to left shoulder and left arm, sometimes to her back. She reported feeling her heart pounding and chest palpitations. She reported diaphoresis and feeling anxious with the chest pain. She has no prior history of coronary artery disease or [place]. She also has chronic headaches and has had a coronal headache since admission. Sometimes relieved with Tylenol. Headache is unchanged from normal. Chest x-ray is negative for any acute abnormality. D-dimer was within normal limits. Lipid panel is elevated. Troponin was elevated on arrival. Return to normal. TSH is within normal limits. Echocardiogram shows LVEF of 65% with normal systolic function, aortic valve is mildly sclerotic, opens well. No significant change from prior echo in Nov, 2015. Patient had ST changes to her stress test was negative. She had minimal single vessel disease. Cardiology has signed up and no further testing is recommended at this time. She will follow-up with cardiology in the clinic. And is reproducible with palpation and deep inspiration. Musculoskeletal pain of unknown etiology. She denies any changes to her routine. Discussed warm moist heat with her, as well as Tylenol for pain control. We have added an aspirin and a beta elisha to her regimen. Lipid panel is still elevated on Crestor 40 mg daily, will add fenofibrate 120 mg daily. Discussed lifestyle modifications. There have been no other medication changes. Vital signs are stable and within normal limits. Patient is not requiring submental oxygen at this time. Sats are within normal limits. Patient is ready for discharge - Time Spent with Patient Total time spent providing and/or coordinating discharge services: Less than 30 minutes - Constitutional Vitals: Temp Pulse Resp BP Pulse Ox 98.3 F 78 16 102/64 96 05/01/17 07:00 05/01/17 07:00 05/01/17 07:00 05/01/17 07:00 05/01/17 07:00 General appearance: Present: cooperative, A&O X 3, pleasant, no acute distress, obese, answers questions appropriately - Head Head exam: Present: atraumatic, normal inspection, normocephalic - Eye Eye exam: Present: normal appearance, conjuntiva pink, sclera anicteric - Neck Neck exam general surgery: Present: supple, trachea midline. Absent: lymphadenopathy, tenderness - Respiratory Respiratory exam: Present: chest wall tenderness, CTAB. Absent: accessory muscle use, rales, respiratory distress, rhonchi, wheezes - Cardiovascular Cardiovascular exam: Present: RRR, +S1, +S2. Absent: diastolic murmur, gallop, rubs, systolic murmur - GI/Abdominal GI/Abdominal exam: Present: normal bowel sounds, soft, no peritoneal signs. Absent: distended, hepatomegaly, tenderness - Extremities Exam Extremities exam: Present: normal capillary refill, warm, radial pulses palpable and symmetrical. Absent: calf tenderness, cyanotic, pedal edema - Neurological Exam Neurological exam: Present: alert, oriented X3, no focal deficits. Absent: facial droop, speech deficit - Skin Skin exam: Present: dry, intact, normal color, warm. Absent: rash
[2017-05-01 11:21] VITALS: BP 106/63
== END 2017-05-01 14:15 | disposition home or self-care (01) ==
LOC: 3BNU 17:30 → EMEROO 17:30 → 3BNU 20:17
PROVIDERS: ADMIT Nurse Practitioner Family; ATTEND Registered Nurse